=== PATIENT | male | born 1950 | race Caucasian/White ===

== ENCOUNTER 2023-12-28 12:12 | Emergency (ER) | payer MEDICARE ==
[~2023-12-28] VITALS: Ht 177.8 cm; Wt 81.6 kg
[2023-12-28 12:19] VITALS: BP_SYST 93; PULSE 93; RESP 18; TEMP 97.7; O2SAT 94
[2023-12-28] MEDS ORDERED: LIDOCAINE 1%, 20 ML MDV 20 ML ONE (15:54)
[2023-12-28] MEDS ORDERED: LIDOCAINE 1% 10 MG/ML, 20 ML MDV INJ ONE (16:30)
[2023-12-28 16:34] VITALS: BP_SYST 93; PULSE 93; RESP 18; TEMP 97.7; O2SAT 94
[2023-12-28] MEDS: DIPHTH,PERTUSS(ACELL),TET VAC 0.5 ML VIAL (Tdap) I.M. ONE (16:36)
[2023-12-28] MEDS: BACITRACIN 1 GM OINT TP ONE (16:38)
== END 2023-12-28 16:39 | disposition home or self-care (01) ==
LOC: SED 12:12
DX: S61.211A Laceration without foreign body of left index finger without damage to nail, initial encounter (principal); Z79.899 Other long term (current) drug therapy; W29.3XXA Contact with powered garden and outdoor hand tools and machinery, initial encounter; Y93.89 Activity, other specified; Y92.89 Other specified places as the place of occurrence of the external cause; Y99.8 Other external cause status
CPT/HCPCS: 90715; 99283; J2001